=== PATIENT | male | born 1950 | race Caucasian/White ===

== ENCOUNTER → 2016-08-07 | Outpatient (CLI) | payer MEDICARE, BC ==
[2016-08-07 12:49] LABS: Anion Gap 10 mmol/L; Blood Urea Nitrogen 18 mg/dL (9-20); Calcium 9.5 mg/dL (8.4-10.2); Carbon Dioxide 27 mmol/L (22-30); Chloride 107 mmol/L (98-107); Glucose 109 mg/dL (74-99); Lithium 0.7 mmol/L; Non-African American GFR(MDRD) >60 (>60 ml/min/1.73 sqM); Sodium 144 mmol/L (137-145)
[2016-08-07 12:52] LABS: Potassium 4.9 mmol/L (3.5-5.1)
== END | disposition home or self-care (01) ==
LOC: LABWHC1 10:57
PROVIDERS: ATTEND Psychiatry & Neurology Psychiatry
DX: F31.9 Bipolar disorder, unspecified (principal)
CPT/HCPCS: 36415; 80048; 80178

== ENCOUNTER → 2016-11-14 | Outpatient (CLI) | payer MEDICARE, BC ==
[2016-11-14 11:52] LABS: Anion Gap 9 mmol/L; Blood Urea Nitrogen 22 mg/dL (9-20); Carbon Dioxide 24 mmol/L (22-30); Chloride 108 mmol/L (98-107); Lithium 0.8 mmol/L; Non-African American GFR(MDRD) >60 (>60 ml/min/1.73 sqM); Potassium 4.8 mmol/L (3.5-5.1); Sodium 141 mmol/L (137-145)
== END | disposition home or self-care (01) ==
LOC: LABWHC1 07:35
PROVIDERS: ATTEND Psychiatry & Neurology Psychiatry
DX: F31.10 Bipolar disorder, current episode manic without psychotic features, unspecified (principal)
CPT/HCPCS: 36415; 80051; 80178; 82565; 84520

== ENCOUNTER → 2017-01-14 | Outpatient (CLI) | payer MEDICARE, BC ==
--- NOTE | 2017-01-16 16:17 | P.ARTDOP ---
Arterial Doppler LOWER EXTREMITY ARTERIAL DOPPLER: DATE OF SERVICE: 01/14/2017 Reason for study: Unknown. Patient altered mental status. Doppler waveforms: Multiphasic throughout on the left and right.. Pulse volume recording: Normal configuration. Pressure gradients: None Ankle-brachial indices: are greater than 1 bilaterally. Toe pressures: 123 on the [id number] the left Impression: normal study.
== END | disposition home or self-care (01) ==
LOC: RADUSWWP 12:39 → EEVIPCON 12:39
PROVIDERS: ATTEND Internal Medicine
DX: I73.9 Peripheral vascular disease, unspecified (principal)
CPT/HCPCS: 93923

== ENCOUNTER 2017-04-26 07:19 | Emergency (ER) | payer MEDICARE, BC ==
[2017-04-26 07:29] VITALS: BP 142/75; PULSE 74; RESP 18; TEMP 98.8
--- NOTE | 2017-04-26 08:19 | ED ---
General Adult HPI - General Chief complaint: Altered Mental Status Stated complaint: ALtered mental Time Seen by Provider: 04/26/17 07:20 Source: EMS, RN notes reviewed Mode of arrival: EMS Limitations: no limitations - History of Present Illness Initial comments: This is a 67-year-old male who presents to the emergency department with a past medical history significant for dementia and a stroke. Patient has expressive aphasia secondary to this. Patient it's up every morning and has a routine that he follows which includes getting on a bus and going to a restaurant and then visiting a number of other sites. This morning however the patient was found walking down the [facility]. in the [place] police came upon him thought he had altered mental status and called EMS. Family is at his bedside and they state that he is currently acting normal and does not appear in any distress and they don't want any workup because he is at his baseline and follows up with his doctor regularly. Family states he also takes his morning medicines about now would like to get him back to take his medicines. Family did agree to allow some blood to be taken and sent off basic CBC comp and a lithium level that they wanted take the patient home immediately. I agreed to this. - Related Data Home Medications Medication Instructions Recorded Confirmed Aspirin EC [Ecotrin Low Dose] 81 mg PO HS 04/26/17 04/26/17 Atorvastatin [Lipitor] 10 mg PO HS 04/26/17 04/26/17 Cholecalciferol (Vitamin D3) 2,000 unit PO DAILY 04/26/17 04/26/17 [Vitamin D3] DULoxetine HCL [Cymbalta] 30 mg PO DAILY 04/26/17 04/26/17 DULoxetine HCL [Cymbalta] 60 mg PO DAILY 04/26/17 04/26/17 Donepezil [Aricept] 5 mg PO HS 04/26/17 04/26/17 Furosemide [Lasix] 40 mg PO MOWEFR 04/26/17 04/26/17 Ginkgo Biloba 500 mg PO DAILY 04/26/17 04/26/17 Lisinopril [Zestril] 10 mg PO HS 04/26/17 04/26/17 [place] Carbonate 300 mg PO QAM 04/26/17 04/26/17 [place] Carbonate 600 mg PO HS 04/26/17 04/26/17 Multivitamins, Thera [Multivitamin 1 tab PO DAILY 04/26/17 04/26/17 (formulary)] Potassium Chloride [Klor-Con 20] 20 meq PO MOWEFR 04/26/17 04/26/17 Propranolol [Inderal] 10 mg PO BID 04/26/17 04/26/17 Allergies Allergy/AdvReac Type Severity Reaction Status Date / Time No Known Allergies Allergy Verified 04/26/17 08:16 Review of Systems ROS Statement: Those systems with pertinent positive or pertinent negative responses have been documented in the HPI. ROS Other: All systems not noted in ROS Statement are negative. Past Medical History Past Medical History: Dementia, Hypertension Additional Past Medical History / Comment(s): patient unable to answer appropriately History of Any Multi-Drug Resistant Organisms: None Reported Past Surgical History: No Surgical Hx Reported Additional Past Surgical History / Comment(s): patient unable to answer appropriately Past Psychological History: Bipolar, Depression Smoking Status: Current every day smoker Past Alcohol Use History: None Reported Past Drug Use History: None Reported General Exam - General Exam Comments Initial Comments: GENERAL: Patient is well-developed and well-nourished. Patient is nontoxic and well- hydrated and is in no acute distress. ENT: Neck is soft and supple. No significant lymphadenopathy is noted. Oropharynx is clear. Moist mucous membranes. Neck has full range of motion without eliciting any pain. EYES: The sclera were anicteric and conjunctiva were pink and moist. Extraocular movements were intact and pupils were equal round and reactive to light. Eyelids were unremarkable. PULMONARY: Unlabored respirations. Good breath sounds bilaterally. No audible rales rhonchi or wheezing was noted. CARDIOVASCULAR: There is a regular rate and rhythm without any murmurs gallops or rubs. ABDOMEN: Soft and nontender with normal bowel sounds. No palpable organomegaly was noted. There is no palpable pulsatile mass. SKIN: Skin is clear with no lesions or rashes and otherwise unremarkable. NEUROLOGIC: Patient is alert and oriented is unable to be accurately determined because the patient does not speak. Cranial nerves II through XII are grossly intact. Patient is able to move all 4 extremities without problem.. Symmetrical smile. intact. MUSCULOSKELETAL: Normal extremities with adequate strength and full range of motion. No lower extremity swelling or edema. No calf tenderness. LYMPHATICS: No significant lymphadenopathy is noted PSYCHIATRIC: Normal psychiatric evaluation with the help of the family who state he is at his baseline Limitations: no limitations Course Vital Signs 04/26/17 07:21 Temperature 98.8 F Pulse Rate 74 Respiratory 18 Rate Blood Pressure 142/75 O2 Sat by Pulse 100 Oximetry Medical Decision Making - Medical Decision Making EKG shows normal sinus rhythm at 70 bpm ME interval 178 QRS is 90 QT interval 398 QTC is 429. Patient's EKG shows no ST segment elevation or depression or T wave normalities are noted. Patient ambulated around the emergency department without problem family states the patient is in no distress he is acting completely at his baseline. Disposition Clinical Impression: Dementia Disposition: HOME SELF-CARE Condition: Good Instructions: Dementia (ED) Referrals: None,Stated [Primary Care Provider] - 1-2 days Time of Disposition: 08:24
[2017-04-26 08:29] LABS: Basophils % (A) 0 %; CH 30.2; CHCM 32.8; Eosinophils # (A) 0.2 k/uL (0-0.7); Eosinophils % (A) 3 %; HCT 40.6 % (39.0-53.0); HDW 2.58; HGB 13.2 gm/dL (13.0-17.5); Luc # (Auto) 0.17; Luc % (Auto) 2; Lymphocytes # (A) 1.5 k/uL (1.0-4.8); Lymphocytes % (A) 22 %; MCH 30.2 pg (25.0-35.0); MCHC 32.6 g/dL (31.0-37.0); MCV 92.6 fL (80.0-100.0); Mean Platelet Volume 7.4; Monocytes # (A) 0.4 k/uL (0-1.0); Monocytes % (A) 5 %; Neutrophils # (A) 4.9 k/uL (1.3-7.7); Neutrophils % (A) 68 %; RBC 4.38 m/uL (4.30-5.90); RDW 13.1 % (11.5-15.5); WBC 7.2 k/uL (3.8-10.6); WBC (Perox) 7.79
[2017-04-26 08:40] LABS: ALT 27 U/L (21-72); AST 21 U/L (17-59); Alkaline Phosphatase 63 U/L (38-126); Anion Gap 11 mmol/L; Blood Urea Nitrogen 19 mg/dL (9-20); Calcium 8.8 mg/dL (8.4-10.2); Carbon Dioxide 20 mmol/L (22-30); Chloride 108 mmol/L (98-107); Glucose 86 mg/dL (74-99); Non-African American GFR(MDRD) 57 (>60 ml/min/1.73 sqM); Potassium 4.2 mmol/L (3.5-5.1); Sodium 139 mmol/L (137-145); Total Bilirubin 0.5 mg/dL (0.2-1.3); Total Protein 6.3 g/dL (6.3-8.2)
[2017-04-26 09:09] LABS: Lithium 1.5 mmol/L
== END 2017-04-26 08:31 | disposition home or self-care (01) ==
LOC: EC 07:19
DX: F03.90 Unspecified dementia, unspecified severity, without behavioral disturbance, psychotic disturbance, mood disturbance, and anxiety (principal); F31.9 Bipolar disorder, unspecified; I10 Essential (primary) hypertension; F17.200 Nicotine dependence, unspecified, uncomplicated; Z86.73 Personal history of transient ischemic attack (TIA), and cerebral infarction without residual deficits; Z79.82 Long term (current) use of aspirin; Z79.899 Other long term (current) drug therapy
CPT/HCPCS: 36415; 80053; 80178; 85025; 93005; 99285

== ENCOUNTER → 2017-05-13 | Outpatient (CLI) | payer MEDICARE, BC ==
[2017-05-13 12:43] LABS: Anion Gap 8 mmol/L; Blood Urea Nitrogen 14 mg/dL (9-20); Calcium 9.3 mg/dL (8.4-10.2); Carbon Dioxide 25 mmol/L (22-30); Chloride 109 mmol/L (98-107); Glucose 99 mg/dL (74-99); Lithium 0.4 mmol/L; Non-African American GFR(MDRD) >60 (>60 ml/min/1.73 sqM); Potassium 5.3 mmol/L (3.5-5.1); Sodium 142 mmol/L (137-145)
== END | disposition home or self-care (01) ==
LOC: LABWHC1 09:16
PROVIDERS: ATTEND Psychiatry & Neurology Psychiatry
DX: F31.9 Bipolar disorder, unspecified (principal)
CPT/HCPCS: 36415; 80048; 80178

== ENCOUNTER → 2017-07-08 | Outpatient (CLI) | payer MEDICARE, BC ==
--- NOTE | 2017-07-08 08:44 | US ---
EXAMINATION TYPE: US abdomen complete DATE OF EXAM: 07/08/2017 COMPARISON: NONE CLINICAL HISTORY: 67-year-old male R63.4 Abnormal weight loss. Patient unable to provide health histo ry TECHNIQUE: Multiple sonographic images of the abdomen are obtained. FINDINGS: Liver Length: 11.2 cm Gallbladder Wall: 0.2 cm CBD: 3.6 mm Spleen: 10.1 cm Right Kidney: 11.7 x 5.7 x 3.4 cm Left Kidney: 11.4 x 5.1 x 4.8 cm Pancreas: wnl Liver: Limited views of the liver. Visualized portions show no gross abnormality. Gallbladder: wnl Evidence for sonographic Sheffield's sign: No CBD: wnl Spleen: wnl Right Kidney: appears malrotated with prominent renal pelvis. There is no calyceal dilatation to sug gest hydronephrosis. Left Kidney: lobular cortex without hydronephrosis. There is trace perinephric fluid which can be se en in the setting of chronic kidney disease. Upper IVC: wnl Abd Aorta: aneurysmal appearance to inferior aorta with largest size = 3.5cm transverse and intimal wall changes are also noted inferiorly. IMPRESSION: 1. Limited views of the liver. No abnormality of the visualized portions. 2. 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 3. Some perinephric sweat noted which can be seen in the setting of chronic kidney disease. 4. 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
--- NOTE | 2017-07-08 08:52 | XR ---
EXAMINATION TYPE: XR chest 2V DATE OF EXAM: 07/08/2017 COMPARISON: NONE TECHNIQUE: PA and lateral views submitted. HISTORY: Weight loss FINDINGS: The lungs are clear and there is no pneumothorax, pleural effusion, or focal pneumonia. Hypertrophi c change of the spine noted. Biapical pleural thickening. Arthropathy shoulders. Chronic rib deformit ies suggest remote trauma IMPRESSION: 1. No acute process.
== END | disposition home or self-care (01) ==
LOC: RADUSWWP 06:57
PROVIDERS: ATTEND Internal Medicine
DX: N28.89 Other specified disorders of kidney and ureter (principal); R63.4 Abnormal weight loss
CPT/HCPCS: 71020; 76700

== ENCOUNTER 2017-08-01 17:52 | Inpatient (IN) | payer MEDICARE, BC ==
[2017-08-01 18:56] LABS: Basophils % (A) 0 %; Eosinophils # (A) 0.2 k/uL (0-0.7); Eosinophils % (A) 3 %; HCT 41.8 % (39.0-53.0); Lymphocytes # (A) 2.1 k/uL (1.0-4.8); Lymphocytes % (A) 28 %; MCH 29.2 pg (25.0-35.0); MCHC 33.5 g/dL (31.0-37.0); MCV 87.4 fL (80.0-100.0); Mean Platelet Volume 7.4; Monocytes # (A) 0.4 k/uL (0-1.0); Monocytes % (A) 6 %; Neutrophils # (A) 4.8 k/uL (1.3-7.7); Neutrophils % (A) 62 %; Platelet Count 270 k/uL (150-450); RBC 4.79 m/uL (4.30-5.90); WBC 7.7 k/uL (3.8-10.6)
[2017-08-01 19:09] LABS: Alcohol <10 mg/dL; Anion Gap 11 mmol/L; Blood Urea Nitrogen 15 mg/dL (9-20); Calcium 9.4 mg/dL (8.4-10.2); Carbon Dioxide 21 mmol/L (22-30); Chloride 105 mmol/L (98-107); Glucose 137 mg/dL (74-99); Potassium 3.7 mmol/L (3.5-5.1); Sodium 137 mmol/L (137-145)
[2017-08-01 19:28] LABS: Amphetamine Screen,Urine Not Detected (NotDetected); Barbiturate Screen,Urine Not Detected (NotDetected); Benzodiazepines Screen,Urine Not Detected (NotDetected); Cocaine Screen,Urine Not Detected (NotDetected); Methadone Screen, Urine Not Detected (NotDetected); Opiate Screen,Urine Not Detected (NotDetected); Oxycodone Screen, Urine Not Detected (NotDetected); Phencyclidine Screen,Urine Not Detected (NotDetected); Tricyclic Antidepressant,Urine Not Detected (NotDetected); Urn Cannabinoid Scrn Not Detected (NotDetected)
[2017-08-01 20:07] LABS: Appearance,Urine Turbid (Clear); Bilirubin,Urine 1+ (Negative); Blood,Urine Negative (Negative); Color,Urine Yellow; Glucose,Urine (UA) Negative (Negative); Hyaline Casts,Urine 12 /lpf (0-2); Ketones,Urine Trace (Negative); Leukocyte Esterase,Urine Negative (Negative); Mucus,Urine Few /hpf; Nitrite,Urine Negative (Negative); Protein,Urine 1+ (Negative); RBC,Urine 8 /hpf (0-5); Specific Gravity,Urine 1.019 (1.001-1.035); Squamous Epithelial Cell,Urine 1 /hpf (0-4); WBC,Urine 4 /hpf (0-5)
--- NOTE | 2017-08-01 21:13 | ED ---
Psych HPI - General Chief Complaint: Psychiatric Symptoms Stated Complaint: MENTAL HEALTH Time Seen by Provider: 08/01/17 18:36 Source: patient Mode of arrival: ambulatory Limitations: physical limitation (Underlying dementia) - History of Present Illness Initial Comments: This patient is 67-year-old man with history of some underlying dementia, brought to have evaluation as he has been developing some aggressive behavior. Most of the history is from the patient's brother, as the patient does have underlying dementia. The patient when interviewed is denying any suicidal or homicidal ideation area denying hallucinations. The patient's behavior has recently changed. He is refusing to take his medications at times. He has started isolating himself. He has made threatening statements but has not physically assaulted anyone. MD Complaint: other -: week(s) Associated Psychiatric Symptoms: other Quality: getting worse Associated Symptoms: denies other symptoms - Related Data Home Medications Medication Instructions Recorded Confirmed Aspirin EC [Ecotrin Low Dose] 81 mg PO HS 04/26/17 08/01/17 Atorvastatin [Lipitor] 10 mg PO HS 04/26/17 08/01/17 Cholecalciferol (Vitamin D3) 2,000 unit PO HS 04/26/17 08/01/17 [Vitamin D3] DULoxetine HCL [Cymbalta] 60 mg PO DAILY 04/26/17 08/01/17 Donepezil [Aricept] 5 mg PO HS 04/26/17 08/01/17 Ginkgo Biloba 500 mg PO DAILY 04/26/17 08/01/17 Lisinopril [Zestril] 10 mg PO HS 04/26/17 08/01/17 [place] Carbonate 300 mg PO BID 04/26/17 08/01/17 Multivitamins, Thera [Multivitamin 1 tab PO DAILY 04/26/17 08/01/17 (formulary)] Propranolol [Inderal] 10 mg PO BID 04/26/17 08/01/17 Loperamide HCl [Imodium A-D] 2 mg PO DAILY PRN 08/01/17 08/01/17 Allergies Allergy/AdvReac Type Severity Reaction Status Date / Time No Known Allergies Allergy Verified 08/01/17 19:03 Review of Systems ROS Statement: Those systems with pertinent positive or pertinent negative responses have been documented in the HPI. ROS Other: All systems not noted in ROS Statement are negative. Limitations: ROS unobtainable due to patients medical condition (Underlying dementia) Past Medical History Past Medical History: Dementia, Hypertension Additional Past Medical History / Comment(s): patient unable to answer appropriately History of Any Multi-Drug Resistant Organisms: None Reported Past Surgical History: No Surgical Hx Reported Additional Past Surgical History / Comment(s): patient unable to answer appropriately Past Psychological History: Bipolar, Depression Smoking Status: Current every day smoker Past Alcohol Use History: None Reported Past Drug Use History: None Reported General Exam Limitations: no limitations General appearance: alert, in no apparent distress Head exam: Present: atraumatic, normocephalic Eye exam: Present: normal appearance Respiratory exam: Present: normal lung sounds bilaterally. Absent: respiratory distress, wheezes, rales, rhonchi, stridor Cardiovascular Exam: Present: regular rate, normal rhythm, normal heart sounds. Absent: systolic murmur, diastolic murmur, rubs, gallop GI/Abdominal exam: Present: soft. Absent: tenderness, guarding, rebound Extremities exam: Present: normal inspection. Absent: pedal edema Neurological exam: Present: alert, CN II-XII intact. Absent: oriented X3 ( is oriented to person), motor sensory deficit Psychiatric exam: Present: normal affect. Absent: agitated, anxious, flat affect, manic, homicidal ideation, suicidal ideation Skin exam: Present: warm, dry, intact, normal color. Absent: rash Course Vital Signs 08/01/17 08/01/17 17:54 20:27 Temperature 98.3 F 98.0 F Pulse Rate 108 H 60 Respiratory 18 18 Rate Blood Pressure 154/81 121/64 O2 Sat by Pulse 100 99 Oximetry Medical Decision Making - Medical Decision Making Patient is seen by behavioral health who will admit the patient for further evaluation and treatment. - Lab Data Result diagrams: 08/01/17 18:47 08/01/17 18:47 Lab Results 08/01/17 08/01/17 08/01/17 Range/Units 18:47 18:47 18:47 WBC 7.7 (3.8-10.6) k/uL RBC 4.79 (4.30-5.90) m/uL Hgb 14.0 (13.0-17.5) gm/dL Hct 41.8 (39.0-53.0) % MCV 87.4 (80.0-100.0) fL MCH 29.2 (25.0-35.0) pg MCHC 33.5 (31.0-37.0) g/dL RDW 14.0 (11.5-15.5) % Plt Count 270 (150-450) k/uL Neutrophils % 62 % Lymphocytes % 28 % Monocytes % 6 % Eosinophils % 3 % Basophils % 0 % Neutrophils # 4.8 (1.3-7.7) k/uL Lymphocytes # 2.1 (1.0-4.8) k/uL Monocytes # 0.4 (0-1.0) k/uL Eosinophils # 0.2 (0-0.7) k/uL Basophils # 0.0 (0-0.2) k/uL Sodium 137 (137-145) mmol/L Potassium 3.7 (3.5-5.1) mmol/L Chloride 105 (98-107) mmol/L Carbon Dioxide 21 L (22-30) mmol/L Anion Gap 11 mmol/L BUN 15 (9-20) mg/dL Creatinine 1.20 (0.66-1.25) mg/dL Est GFR (MDRD) Af Amer >60 (>60 ml/min/1.73 sqM) Est GFR (MDRD) Non-Af >60 (>60 ml/min/1.73 sqM) Glucose 137 H (74-99) mg/dL Calcium 9.4 (8.4-10.2) mg/dL TSH 1.450 (0.465-4.680) mIU/L Urine Color Urine Appearance (Clear) Urine pH (5.0-8.0) Ur Specific [place] (1.001-1.035) Urine Protein (Negative) Urine Glucose (UA) (Negative) Urine Ketones (Negative) Urine Blood (Negative) Urine Nitrite (Negative) Urine Bilirubin (Negative) Urine Urobilinogen (<2.0) mg/dL Ur Leukocyte Esterase (Negative) Urine RBC (0-5) /hpf Urine WBC (0-5) /hpf Ur Squamous Epith Cells (0-4) /hpf Hyaline Casts (0-2) /lpf Urine Mucus (None) /hpf Urine Opiates Screen Not Detected (NotDetected) Ur Oxycodone Screen Not Detected (NotDetected) Urine Methadone Screen Not Detected (NotDetected) Ur Propoxyphene Screen Not Detected (NotDetected) Ur Barbiturates Screen Not Detected (NotDetected) U Tricyclic Antidepress Not Detected (NotDetected) Ur Phencyclidine Scrn Not Detected (NotDetected) Ur Amphetamines Screen Not Detected (NotDetected) U Methamphetamines Scrn Not Detected (NotDetected) U Benzodiazepines Scrn Not Detected (NotDetected) [place] mmol/L Urine Cocaine Screen Not Detected (NotDetected) U Marijuana (THC) Screen Not Detected (NotDetected) Serum Alcohol <10 mg/dL 08/01/17 08/01/17 Range/Units 18:47 18:47 WBC (3.8-10.6) k/uL RBC (4.30-5.90) m/uL Hgb (13.0-17.5) gm/dL Hct (39.0-53.0) % MCV (80.0-100.0) fL MCH (25.0-35.0) pg MCHC (31.0-37.0) g/dL RDW (11.5-15.5) % Plt Count (150-450) k/uL Neutrophils % % Lymphocytes % % Monocytes % % Eosinophils % % Basophils % % Neutrophils # (1.3-7.7) k/uL Lymphocytes # (1.0-4.8) k/uL Monocytes # (0-1.0) k/uL Eosinophils # (0-0.7) k/uL Basophils # (0-0.2) k/uL Sodium (137-145) mmol/L Potassium (3.5-5.1) mmol/L Chloride (98-107) mmol/L Carbon Dioxide (22-30) mmol/L Anion Gap mmol/L BUN (9-20) mg/dL Creatinine (0.66-1.25) mg/dL Est GFR (MDRD) Af Amer (>60 ml/min/1.73 sqM) Est GFR (MDRD) Non-Af (>60 ml/min/1.73 sqM) Glucose (74-99) mg/dL Calcium (8.4-10.2) mg/dL TSH (0.465-4.680) mIU/L Urine Color Yellow Urine Appearance Turbid (Clear) Urine pH 6.0 (5.0-8.0) Ur Specific [place] 1.019 (1.001-1.035) Urine Protein 1+ H (Negative) Urine Glucose (UA) Negative (Negative) Urine Ketones Trace H (Negative) Urine Blood Negative (Negative) Urine Nitrite Negative (Negative) Urine Bilirubin 1+ H (Negative) Urine Urobilinogen 2.0 (<2.0) mg/dL Ur Leukocyte Esterase Negative (Negative) Urine RBC 8 H (0-5) /hpf Urine WBC 4 (0-5) /hpf Ur Squamous Epith Cells 1 (0-4) /hpf Hyaline Casts 12 H (0-2) /lpf Urine Mucus Few H (None) /hpf Urine Opiates Screen (NotDetected) Ur Oxycodone Screen (NotDetected) Urine Methadone Screen (NotDetected) Ur Propoxyphene Screen (NotDetected) Ur Barbiturates Screen (NotDetected) U Tricyclic Antidepress (NotDetected) Ur Phencyclidine Scrn (NotDetected) Ur Amphetamines Screen (NotDetected) U Methamphetamines Scrn (NotDetected) U Benzodiazepines Scrn (NotDetected) [place] 0.6 mmol/L Urine Cocaine Screen (NotDetected) U Marijuana (THC) Screen (NotDetected) Serum Alcohol mg/dL Disposition Clinical Impression: Dementia, Aggressive behavior Disposition: ADMITTED IP TO THIS [facility] Condition: Fair Referrals: Maribell Leach MD [Primary Care Provider] - 1-2 days
[2017-08-01] MEDS ORDERED: MAGNESIUM HYDROXIDE 2,400 MG/10 ML CUP PO PRN (22:29)
[2017-08-01] MEDS ORDERED: ACETAMINOPHEN TAB 325 MG TAB PO PRN (22:29)
[2017-08-01] MEDS ORDERED: MAG HYDROX/AL HYDROX/SIMETH 30 ML CUP PO PRN (22:29)
[2017-08-01] MEDS ORDERED: ZIPRASIDONE 20 MG VIAL IM PRN (22:31)
[2017-08-01] MEDS ORDERED: LORazepam 2 MG/ML INJ IM PRN (22:32)
[2017-08-01] MEDS ORDERED: LORazepam 1 MG TAB PO PRN (22:32)
[2017-08-02] MEDS ORDERED: PROPRANOLOL 10 MG TAB PO SCH (09:00)
[2017-08-02 09:21] LABS: Cholesterol 140 mg/dL (<200); HDL Cholesterol 40 mg/dL (40-60); LDL Cholesterol,Calculated 78 mg/dL (0-99); Triglycerides 112 mg/dL (<150)
[2017-08-02] MEDS: DULoxetine HCL 60 MG CAPSULE.DR PO SCH (10:13)
[2017-08-02] MEDS: MULTIVITAMINS, THERA 1 EACH TAB PO SCH (10:13)
--- NOTE | 2017-08-02 12:38 | HP ---
HISTORY AND PHYSICAL DATE OF SERVICE: 08/02/2017 IDENTIFYING DATA: The patient is a 67-year-old male. He resides in an [facility] in his own apartment. He was brought to the emergency room by his brother. CHIEF COMPLAINT: The patient has an underlying diagnosis of dementia. He had recent change in behavior where he refused to take medications. He was isolating himself. He was making threatening statements and he developed some aggressive behavior. HISTORY OF PRESENT ILLNESS: There is only very limited information available. The patient himself is quite confused and not able to communicate any information at all. The patient's brother apparently provided all the information which included that he has underlying dementia that apparently has been an ongoing diagnosis for about 1-1/2 years. He has had recent change in his behavior, though we have no information about what his baseline is. He apparently has had some past psychiatric care, but there are no details. Currently, he is on Cymbalta 60 mg a day and lithium carbonate 300 mg twice a day as his primary psychotropic medications. He is on Aricept 5 mg a day and Inderal 10 mg twice a day. We have no information available in regards to his basic function. It is unclear what his sleep or eating patterns are. He is admitted for further evaluation. SUBSTANCE USE HISTORY: Uncertain. PAST MEDICAL HISTORY: Patient currently is on Lipitor, vitamin D3, Zestril and Inderal. Further medical history and review of systems as per medical consultation. FAMILY AND SOCIAL HISTORY: The only information available is as above. MENTAL STATUS EXAM: Patient was in his room lying down when I asked him to get up and come down the celaya. He responded fairly quickly. He got up, he walked down the celaya. He had a steady gait. He stood at the desk with some other staff. He did not seem to recognize anyone, though he had talked to other staff before. He mumbled words that were very difficult to understand. It is not clear that any of what he said was intelligible. There were no words that he uttered that seem to connect to questions asked. He had a blunted affect. His mood was quiet. He did appear to be distressed. When I said we were done with the interview, he turned fairly easily and walked down to his room. He walked into his room, closed the door and apparently laid back in bed. Staff stated that there were a few times since admission where he was uncertain about where his room was. PHYSICAL EXAM: As per medical consultation. ASSESSMENT: This 67-year-old male has underlying dementia. He has had recent behavioral change including refusing to take medications and some degree of agitation. He presents in quite a confused disoriented state. Again, we do not have any reliable information about his baseline. Strengths include that he has been living in a somewhat independent setting. Weakness includes possible advancing dementia. DIAGNOSES: 1. Acute psychotic episode. 2. Dementia. 3. Hypertension. 4. Hyperlipidemia. RECOMMENDATIONS: Patient will be admitted for a comprehensive medical psychiatric and psychosocial evaluation. We will make efforts to engage the patient in individual and group therapeutic activities. We will need to gather further information, especially from the patient's brother to get a better picture of his baseline and what his best level of function is. It is noteworthy that on August 01 at 1847, his lithium level was 0.6. Urinalysis is unremarkable with no indication of infection. He has a mild elevation in glucose of 137. CBC is unremarkable. In regards to medications, I will continue his Cymbalta 60 mg a day and lithium carbonate 600 mg at bedtime. I will continue Aricept at this time. A question would be whether to titrate up on Aricept and also add Namenda versus taking off of Aricept altogether for patients with more advanced dementia. Aricept may cause difficulties with mood and function. I will discontinue Inderal as Inderal may aggravate depression. We will focus on stabilization and discharge planning. MMYESSENIAL / KOBYN: [phone] /
--- NOTE | 2017-08-02 13:26 | P.MDCNMH ---
History of Present Illness H&P Date: 08/02/17 Chief Complaint: Refusing medications This is a 67-year-old male patient of Dr. Leach with a past medical history of vascular dementia, hypertension, vitamin D deficiency, bipolar disorder on lithium, hypercholesterolemia, hypothyroidism. Patient currently was admitted to the mental health unit as he was declining. He is on lithium and Dr. Pantoja recommended medication change. Patient is currently at [facility][1] in his own apartment and executive staff assistant with his medication and clean his apartment. Brother states he is normally ambulatory and can do his own ADLs. Patient was verbally aggressive recently and locked himself in his apartment and was refusing to take his medications. Family was able to get the patient to go to [facility] for dinner and then he took his medications later. Patient currently has been more aggressive. Patient is unable to communicate and speech noted to be very low volume and mumbled. He does have a public guardian, Ferdinand Hilton. Urine drug screen was negative, serum alcohol less than 10. Urinalysis was positive for trace ketones, 1+ bilirubin, 8 RBCs. Review of Systems ROS unobtainable: due to mental status Past Medical History Past Medical History: Dementia, Hypertension Additional Past Medical History / Comment(s): Vascular dementia, hypertension, vitamin D deficiency, bipolar disorder, hypercholesterolemia, hypothyroidism History of Any Multi-Drug Resistant Organisms: None Reported Past Surgical History: No Surgical Hx Reported Additional Past Surgical History / Comment(s): patient unable to answer appropriately Smoking Status: Former smoker Additional Past Alcohol Use History / Comment(s): Patient was smoker of a half pack per day and quit in 2013. There is history of alcohol use but no current use. - Past Family History Mother Additional Family Medical History / Comment(s): Mother is from breast cancer. Father Additional Family Medical History / Comment(s): Father is alive with history of kidney stones. Brother(s) Additional Family Medical History / Comment(s): Brother has history of prostate cancer Medications and Allergies Home Medications Medication Instructions Recorded Confirmed Type Aspirin EC [Ecotrin Low Dose] 81 mg PO HS 04/26/17 08/02/17 History Atorvastatin [Lipitor] 10 mg PO HS 04/26/17 08/02/17 History Cholecalciferol (Vitamin D3) 2,000 unit PO HS 04/26/17 08/02/17 History [Vitamin D3] DULoxetine HCL [Cymbalta] 60 mg PO DAILY 04/26/17 08/02/17 History Donepezil [Aricept] 5 mg PO HS 04/26/17 08/02/17 History Ginkgo Biloba 500 mg PO DAILY 04/26/17 08/02/17 History Lisinopril [Zestril] 10 mg PO HS 04/26/17 08/02/17 History [place] Carbonate 300 mg PO BID 04/26/17 08/02/17 History Multivitamins, Thera [Multivitamin 1 tab PO DAILY 04/26/17 08/02/17 History (formulary)] Propranolol [Inderal] 10 mg PO BID 04/26/17 08/02/17 History Loperamide HCl [Imodium A-D] 2 mg PO DAILY PRN 08/01/17 08/02/17 History Allergies Allergy/AdvReac Type Severity Reaction Status Date / Time No Known Allergies Allergy Verified 08/02/17 02:04 Physical Exam Vitals: Vital Signs Temp Pulse Pulse Resp BP BP Pulse Ox 08/02/17 10:33 98.5 F 85 20 136/97 08/01/17 20:27 98.0 F 60 18 121/64 99 08/01/17 17:54 98.3 F 108 H 18 154/81 100 Intake and Output 08/01/17 08/02/17 08/02/17 22:59 06:59 14:59 Other: Weight 98.43 kg Gen: This is a 67-year-old male patient. He is ambulating in his room and appears to be in no acute distress. Speech is known to be mumbled and low volume. HEENT: Head is atraumatic, normocephalic. Pupils equal, round. Sclerae is anicteric. NECK: Supple. No JVD. No lymphadenopathy. No thyromegaly. LUNGS: Clear to auscultation. No wheezes or rhonchi. No intercostal retractions. HEART: Regular rate and rhythm. No murmur. ABDOMEN: Soft. Bowel sounds are present. No masses. No tenderness. EXTREMITIES: No pedal edema. No calf tenderness. NEUROLOGICAL: Patient is awake, alert. Cranial nerves 2 through 12 are grossly intact. Patient is able to follow simple commands. Cranial Nerve Examination - Cranial Nerves Cranial Nerve II- Optic: Intact Cranial Nerve III- Oculomotor: Intact Cranial Nerve IV- Trochlear: Intact Cranial Nerve V- Trigeminal: Intact Cranial Nerve - Abducens: Intact Cranial Nerve VII- Facial: Intact Cranial Nerve VIII- Auditory: Intact Cranial Nerve IX- Glossopharyngeal: Intact Cranial Nerve X- Vagus: Intact Cranial Nerve XI- Accessory: Intact Cranial Nerve XII- Hypoglossal: Intact Results CBC & Chem 7: 08/01/17 18:47 08/01/17 18:47 Labs: Abnormal Lab Results - Last 24 Hours (Table) 08/01/17 08/01/17 Range/Units 18:47 18:47 Carbon Dioxide 21 L (22-30) mmol/L Glucose 137 H (74-99) mg/dL Urine Protein 1+ H (Negative) Urine Ketones Trace H (Negative) Urine Bilirubin 1+ H (Negative) Urine RBC 8 H (0-5) /hpf Hyaline Casts 12 H (0-2) /lpf Urine Mucus Few H (None) /hpf Assessment and Plan Plan: 1. Bipolar disorder. Patient admitted to the mental health unit. Continue current plan from psychiatrist. 2. Vascular dementia. Continue Aricept 5 mg at bedtime. 3. Hypertension. Continue lisinopril 10 mg at bedtime. 4. Hyperlipidemia. Continue Lipitor 10 mg at bedtime. 5. Hypothyroidism, not currently on medication. TSH is normal. 6. Remote history of tobacco use. No need for nicotine patch. Impression and plan of care have been directed as dictated by the signing physician. Kelsi Dudley nurse practitioner acting as scribe for signing physician.
[2017-08-02 18:50] LABS: Hemoglobin A1C 4.8 % (4.0-6.0)
[2017-08-02] MEDS ORDERED: LITHIUM CARBONATE 300 MG CAP PO SCH (21:00)
[2017-08-02] MEDS ORDERED: DONEPEZIL 5 MG TAB PO SCH (21:00)
[2017-08-02] MEDS: LISINOPRIL 10 MG TAB PO SCH (21:00)
[2017-08-02] MEDS: CHOLECALCIFEROL 1,000 UNIT TAB PO SCH (21:00)
[2017-08-02] MEDS: ATORVASTATIN 10 MG TAB PO SCH (21:00)
[2017-08-02] MEDS: ASPIRIN 81 MG PO SCH (21:00)
[2017-08-03] MEDS: MULTIVITAMINS, THERA 1 EACH TAB PO SCH (09:45)
[2017-08-03] MEDS: DULoxetine HCL 60 MG CAPSULE.DR PO SCH (09:45)
[2017-08-03] MEDS: OLANZapine 2.5 MG TAB PO SCH ×2 (18:44→20:43)
[2017-08-03] MEDS: MEMANTINE 5 MG TAB PO SCH (18:44)
--- NOTE | 2017-08-03 19:30 | PN ---
PROGRESS NOTE DATE OF SERVICE: 08/03/2017. CHIEF COMPLAINT: The patient has underlying dementia. He had recent change in behavior, where he refused to take medications. He was isolating himself. He was making threatening statements and developed aggressive behavior. INTERVAL HISTORY: Patient has been doing fair. I met with the patient's brother. He noted that the patient had been living in his own home up until about 1 to 1-1/2 years ago. He was driving the car. The family intervened to make changes because he had driven to a friend's house out of town and then got lost. It was clear that he was no longer safe to drive a car. He has gone into a care facility that provides some support. He can cook breakfast meals and will eat snacks for lunch. There is a prepared meal for dinner. He has been able to take the bus and seemed to be able to get himself around town fairly well. Starting in about April or May, the family was noticing some decline. He seemed to not be able to manage the bus very appropriately. Also, his communication seemed to drop off. The brother said that at [facility], he was having trouble with communication and tended to just talk in circles and did not make a lot of sense. The brother said that the plans for the patient have been to look for an appropriate care facility to meet his needs. The patient mostly has been in his room. He does not interact much. He does not come out. There are sometimes where he will come out for brief periods of time when encouraged by staff, though then he pretty much goes right back to his room. He seems to understand a few communications, though not much. He overall has not had any significant problems with behavior or mood. He has not had change in his general health. He tolerates his psychotropic medications. MENTAL STATUS: The patient was in his room. He did not really answer any questions. He sat up on the edge of the bed when I came in. He mouthed some things, though it was difficult to discern if he actually said anything all. I encouraged him to come out to the desk. He got up from his bed. As I walked down to the desk, he just simply went to the door and shut the door, going back to his bed. ASSESSMENT: I will continue the current diagnosis and treatment plan. Given the poor level of function that the patient demonstrates, I will make some adjustments that may best be done in the hospital. We will see if we can make any headway in terms of improving his behavior. I will increase his Aricept to 10 mg a day. I will start the patient on Namenda 5 mg a day. I would like to titrate up both on Aricept and Namenda. That job would be primarily on an outpatient basis. I will discontinue both Cymbalta and lithium and start the patient on Zyprexa 2.5 mg 3 times a day. The aim of Zyprexa is to help address possible psychotic symptoms relating to his poor perceptions and the struggle he seems to be having with withdrawal. We will continue to focus on stabilization and discharge planning. ALEX / ADIS: [id number] /
[2017-08-03] MEDS: DONEPEZIL 10 MG TAB PO SCH (20:43)
[2017-08-03] MEDS: LISINOPRIL 10 MG TAB PO SCH (20:43)
[2017-08-03] MEDS: ATORVASTATIN 10 MG TAB PO SCH (20:43)
[2017-08-03] MEDS: CHOLECALCIFEROL 1,000 UNIT TAB PO SCH (20:43)
[2017-08-03] MEDS: ASPIRIN 81 MG PO SCH (20:44)
[2017-08-04] MEDS: OLANZapine 2.5 MG TAB PO SCH ×3 (09:43→20:30)
[2017-08-04] MEDS: MEMANTINE 5 MG TAB PO SCH (09:43)
[2017-08-04] MEDS: MULTIVITAMINS, THERA 1 EACH TAB PO SCH (09:44)
--- NOTE | 2017-08-04 18:42 | PN ---
PROGRESS NOTE DATE OF SERVICE: 08/04/2017. CHIEF COMPLAINT: The patient has underlying dementia. He had recent change in behavior where he refused to take medications. He was isolating himself. He was making threatening statements and developed aggressive behavior. INTERVAL HISTORY: Patient has been doing fair. Mostly he stays in his room. He lays in bed. He will come out when coaxed by staff, so he does not stay out for very long. He will not come down to the dining room for meals. He does not really engage in any other way. I did make a medication changes yesterday that might help either improve some cognitive issues with the increase in the Aricept and starting Namenda and also that might help improve thought organization and improve perceptions in regards to his being started on an antipsychotic, namely Zyprexa. The hope would be that we might see some improvement in function. The patient does have a history of bipolar disorder and had been on lithium. I do not have any further information regarding that. The patient has not had any change in his general health. He tells me he tolerates his psychotropic medications. MENTAL STATUS: Patient was in his room lying down. When I went in he sat up on the edge of the bed. He declined coming out. He did not say anything that was intelligible. His affect was blunted. His mood reserved. He did not appear to be distressed. ASSESSMENT: I will continue the current diagnosis and treatment plan. I will continue psychotropic medications the same. There might be consideration for a underlying issue of catatonia. We will continue to focus on stabilization and discharge planning. MMODL / IJN: [id number] /
[2017-08-04] MEDS: ATORVASTATIN 10 MG TAB PO SCH (20:30)
[2017-08-04] MEDS: DONEPEZIL 10 MG TAB PO SCH (20:30)
[2017-08-04] MEDS: LISINOPRIL 10 MG TAB PO SCH (20:30)
[2017-08-04] MEDS: CHOLECALCIFEROL 1,000 UNIT TAB PO SCH (20:30)
[2017-08-04] MEDS: ASPIRIN 81 MG PO SCH (20:31)
[2017-08-05] MEDS: MEMANTINE 5 MG TAB PO SCH (09:09)
[2017-08-05] MEDS: OLANZapine 2.5 MG TAB PO SCH ×2 (09:09→22:04)
[2017-08-05] MEDS: MULTIVITAMINS, THERA 1 EACH TAB PO SCH (09:09)
[2017-08-05] MEDS ORDERED: OLANZapine 5 MG TAB PO SCH ×2 (10:30→16:00)
--- NOTE | 2017-08-05 10:53 | PN ---
PROGRESS NOTE DATE OF SERVICE: 08/05/2017 CHIEF COMPLAINT: The patient has underlying dementia. He had recent change in behavior when he refused to take medications. He isolated himself. He was making threatening statements and developed aggressive behavior. INTERVAL HISTORY: Patient has been doing fair. He continues to remain in his room most of the time. He lies in bed. It is not sure whether or not he sleeps much of the time. When staff go in to bring him meals or do other general care issues, he generally is awake. He has been eating meals in his room. He has had a calm manner overall. He has not had any problems with difficult behaviors beyond his choice to isolate. He sleeps well at night. He continues to struggle with communication and has at this point, only limited receptive language skills. He has not had change in his general health. He tolerates his psychotropic medications. MENTAL STATUS: Patient was in his room lying down. He got up and sat on the edge of his bed when his breakfast meal came. He mouthed a few words though it was difficult to be clear what he was saying. He showed no inclination to come out of the room. He seemed to have a quiet manner. Otherwise, he did not appear to be distressed. ASSESSMENT: I will continue the current diagnosis and treatment plan. I will increase Zyprexa to 5 mg 3 times a day. We will need to assess whether he shows any response to antipsychotic medications along with his medications for dementia. We will continue to focus on stabilization and discharge planning. ALEX / ADIS: [id number] /
--- NOTE | 2017-08-05 14:42 | P.PN ---
Subjective Progress Note Date: 08/05/17 This is a 67-year-old male patient of Dr. Leach with a past medical history of vascular dementia, hypertension, vitamin D deficiency, bipolar disorder on lithium, hypercholesterolemia, hypothyroidism. Patient currently was admitted to the mental health unit as he was declining. He is on lithium and Dr. Pantoja recommended medication change. Patient is currently at [facility] in his own apartment and staff writer with his medication and clean his apartment. Brother states he is normally ambulatory and can do his own ADLs. Patient was verbally aggressive recently and locked himself in his apartment and was refusing to take his medications. Family was able to get the patient to go to [facility] for dinner and then he took his medications later. Patient currently has been more aggressive. Patient is unable to communicate and speech noted to be very low volume and mumbled. He does have a public guardian, Ferdinand Hilton. Urine drug screen was negative, serum alcohol less than 10. Urinalysis was positive for trace ketones, 1+ bilirubin, 8 RBCs. 08/05: Patient is rechecked on the mental health unit. He has been started on Zyprexa. Patient denies any new complaints. He is cooperative but again speech is difficult to understand. Objective - Vital Signs Vital signs: Vital Signs Temp 97.6 F 08/04/17 06:31 Pulse 68 08/04/17 20:35 Resp 18 08/04/17 20:35 BP 121/66 08/04/17 20:35 Pulse Ox 99 08/01/17 20:27 Intake & Output 08/04/17 08/05/17 08/05/17 18:59 06:59 18:59 Weight 88.7 kg - Exam Gen: This is a 67-year-old male patient. He is ambulating in his room and appears to be in no acute distress. Speech is known to be mumbled and low volume. HEENT: Head is atraumatic, normocephalic. Pupils equal, round. Sclerae is anicteric. NECK: Supple. No JVD. No lymphadenopathy. No thyromegaly. LUNGS: Clear to auscultation. No wheezes or rhonchi. No intercostal retractions. HEART: Regular rate and rhythm. No murmur. ABDOMEN: Soft. Bowel sounds are present. No masses. No tenderness. EXTREMITIES: No pedal edema. No calf tenderness. NEUROLOGICAL: Patient is awake, alert. Cranial nerves 2 through 12 are grossly intact. Patient is able to follow simple commands. - Labs CBC & Chem 7: 08/01/17 18:47 08/01/17 18:47 Assessment and Plan Plan: 1. Bipolar disorder. Patient admitted to the mental health unit. Continue current plan from psychiatrist. 2. Vascular dementia. Continue Aricept 5 mg at bedtime. 3. Hypertension. Continue lisinopril 10 mg at bedtime. 4. Hyperlipidemia. Continue Lipitor 10 mg at bedtime. 5. Hypothyroidism, not currently on medication. TSH is normal. 6. Remote history of tobacco use. No need for nicotine patch. Impression and plan of care have been directed as dictated by the signing physician. Kelsi Dudley nurse practitioner acting as scribe for signing physician.
[2017-08-05] MEDS: ASPIRIN 81 MG PO SCH (22:03)
[2017-08-05] MEDS: DONEPEZIL 10 MG TAB PO SCH (22:03)
[2017-08-05] MEDS: LISINOPRIL 10 MG TAB PO SCH (22:03)
[2017-08-05] MEDS: ATORVASTATIN 10 MG TAB PO SCH (22:04)
[2017-08-05] MEDS: CHOLECALCIFEROL 1,000 UNIT TAB PO SCH (22:06)
[2017-08-06 07:03] VITALS: TEMP 98
[2017-08-06] MEDS: MEMANTINE 5 MG TAB PO SCH (09:24)
[2017-08-06] MEDS: OLANZapine 2.5 MG TAB PO SCH (09:24)
[2017-08-06] MEDS: MULTIVITAMINS, THERA 1 EACH TAB PO SCH (09:24)
[2017-08-06] MEDS: OLANZapine 5 MG TAB PO SCH ×2 (16:59→22:38)
--- NOTE | 2017-08-06 19:27 | PN ---
PROGRESS NOTE DATE OF SERVICE: 08/06/2017 CHIEF COMPLAINT: The patient has underlying dementia. He had recent change in behavior when he refused to take medications. He isolated himself. He was making threatening statements and developed aggressive behavior. INTERVAL HISTORY: Patient has been doing fairly well overall. He does not communicate at all with others. He is able to follow basic commands. He has been coming out of his room more. It does not take much to coax him to get out. He will follow the groups. He will sit in groups. He will do some walking when others walk. He has had no difficult behaviors at all. I discussed his case with Dr. Pantoja, who noted that between the family and guardian at this point there should be reasonable understanding about his care needs. The family does have a plan of looking for a more appropriate place for him to live, though in contact with both guardian and family it seemed that it would be reasonable enough for him to return to his previous facility and with family support work on further placement issues. He has not had change in his general health. He tolerates his psychotropic medications. MENTAL STATUS: Patient was lying down in his room when I saw him. As soon as I opened the door he sat up on the bed. I asked him to come out and he came out without hesitation. He then just walked off down the celaya. He did not say anything or make an effort to communicate. He had a calm manner. He was not distressed. ASSESSMENT: I will continue the current diagnosis and treatment plan. I will continue psychotropic medications the same. Plan will be to discharge the patient most likely tomorrow back to his previous living setting with anticipation of a transfer to a more supported environment. ALEX / ADIS: [id number] /
[2017-08-06] MEDS: ATORVASTATIN 10 MG TAB PO SCH (22:36)
[2017-08-06] MEDS: CHOLECALCIFEROL 1,000 UNIT TAB PO SCH (22:36)
[2017-08-06] MEDS: DONEPEZIL 10 MG TAB PO SCH (22:36)
[2017-08-06] MEDS: ASPIRIN 81 MG PO SCH (22:37)
[2017-08-06] MEDS: LISINOPRIL 10 MG TAB PO SCH (22:37)
[2017-08-07 07:06] VITALS: BP 144/89; PULSE 66; RESP 16
[2017-08-07] MEDS: MEMANTINE 5 MG TAB PO SCH (09:30)
[2017-08-07] MEDS: OLANZapine 5 MG TAB PO SCH ×2 (09:30→16:19)
[2017-08-07] MEDS: MULTIVITAMINS, THERA 1 EACH TAB PO SCH (09:30)
--- NOTE | 2017-08-07 16:37 | DS ---
DISCHARGE SUMMARY DATE OF SERVICE: 08/07/2017 DATE OF ADMISSION: 08/01/2017. DATE OF DISCHARGE: 07/28/2017 ADMISSION AND DISCHARGE DIAGNOSES: 1. Acute psychotic episode. 2. Dementia. 3. Hypertension. 4. Hyperlipidemia. HISTORY OF PRESENT ILLNESS: The patient is a 67-year-old male with an underlying diagnosis of dementia. He had recent significant change in behavior including refusing to take medications. He had isolated himself. There was very limited information available, though apparently he had been diagnosed with dementia for about the last year and a half. He had been living in an apartment in a supported complex. He had been followed by Dr. Pantoja and was on Cymbalta 60 mg a day and lithium carbonate 300 mg twice a day. He was also on Aricept 5 mg a day. According to a brother who visited he had been living independently in his own home up until about one to one and one half years ago, he was driving the car at that time. He had an incident where he drove out of town to visit a friend and got lost. At that point the family intervened to take his driving privileges away. He was taking the bus around town. Toward April or May of this year he was having some decline in his cognition. There were some incidents where he may have gotten mixed up on the bus. Family noted that at least by Thanksgiving if not by Galo that he was having communication problems. He would talk with others, though his talk tended to be circular and often his thoughts just drifted. They were not too connected to things around him and he got to the point where he was having difficult behavior at home as the reason for his referral. He was admitted for further evaluation. PAST MEDICAL HISTORY AND PHYSICAL EXAM: As per Ms Dudley. MENTAL STATUS EXAM: The patient was in his room lying down when I asked him to get up and come down the celaya, he responded fairly quickly. He walked down the celaya. He had a steady gait. He stood at the dose with other staff. He then simply turned back and walked to his room. He did mumble some words. It was difficult to discern anything that he said. COURSE OF HOSPITALIZATION: Patient was admitted for comprehensive medical psychiatric and psychosocial evaluation. We engaged the patient in individual and group therapeutic activities. Early on in his hospital stay, the patient pretty much stayed in his room all day. He would lay in bed with the door closed. Once in a while he would come out with staff coaxing but very quickly he would turn back and go to his room. I elected to give him a trial on some medications. He had been taking Aricept 5 mg a day. Because of that, I elected to continue a trial of medicines for dementia. Aricept was increased to 10 mg a day and Namenda was started at 5 mg a day. My recommendation for those medications would be to continue to titrate up to maximum dose and if no improvement, then taper him off altogether. In addition, I started the patient on Zyprexa 5 mg 3 times a day. The aim of Zyprexa was to help reduce any psychotic symptoms he might be having with impaired sensory system from his dementia. As his hospitalization progressed, the patient seemed more comfortable coming out of his room. He started going to groups. He does not talk. He will mumble some things that are hard to understand what he is saying. He will sit and listen quietly. When the patients go on an exercise walk, he walks along with them. He has had a calm manner overall. He has had no problems with agitation or other difficult behavior. We were able to coordinate with his guardian and family for discharge planning issues. CONDITION AT DISCHARGE: Patient was stable. His mood was even. There was no issue with behavioral problems. He tolerated his psychotropic medications well. RECOMMENDATIONS AND FOLLOWUP: The patient is discharged to his supported apartment. He has a followup appointment with [facility] social media intern 08/13/2017 at 9 a.m. He will see Dr. Leach for primary care followup. DISCHARGE MEDICATIONS: 1. Zyprexa 5 mg 3 times a day. 2. Aricept 10 mg a day. 3. Namenda 5 mg a day. 4. Zestril 10 mg a day. 5. Lipitor 10 mg a day. 6. Aspirin 81 mg a day. He will return to his current apartment complex that is a supportive environment. Guardian and family will be working on whether he will need a more supportive placement situation. MMYESSENIAL / KOBYN: [id number] /
== END 2017-08-07 18:54 | disposition home or self-care (01) | DRG 885 ==
LOC: EC 17:52 → 3MHU 21:59
PROVIDERS: ADMIT Psychiatry & Neurology Psychiatry; ATTEND Psychiatry & Neurology Psychiatry
DX: F23 Brief psychotic disorder (principal); F01.51 Vascular dementia, unspecified severity, with behavioral disturbance; E03.9 Hypothyroidism, unspecified; E78.5 Hyperlipidemia, unspecified; F17.200 Nicotine dependence, unspecified, uncomplicated; F31.9 Bipolar disorder, unspecified; I10 Essential (primary) hypertension; E55.9 Vitamin D deficiency, unspecified; Z79.82 Long term (current) use of aspirin; Z79.899 Other long term (current) drug therapy
CPT/HCPCS: 36415; 80048; 80061; 80178; 80306; 80320; 81001; 82306; 83036; 83735; 84443; 84630; 85025; 99285